=== PATIENT | female | born 1980 | race Caucasian/White ===

== ENCOUNTER → 2018-07-24 | Outpatient (CLI) | payer BC ==
--- NOTE | 2018-07-24 16:55 | KCIC ---
MR of the right knee Indication: Anterior knee pain for 6 months, grinding for 2 months. Comparison: None are available. Technique: The standard multiplanar sequences are obtained. FINDINGS: Artifact: No significant image degradation. Medial meniscus:Intact. Lateral meniscus: Intact. Anterior cruciate ligament: Intact. Posterior cruciate ligament: Intact Medial collateral ligament: Intact. Lateral structures: * Iliotibial band: Intact. * Lateral collateral ligament: Intact. * Biceps femoris tendon: Intact * Popliteus tendon attachment: Intact Extensive mechanism: * Patellar tendon: Intact * Quadriceps tendon: Intact * Retinacular structures: Intact Fluid: Small joint effusion. No significant Horton's cyst. Intra-articular bodies: None visualized Joint compartments * patellofemoral joint: Chondromalacia of the patella with small subchondral cysts and edema. Lateral patellar tilt and subluxation. * medial compartment:Intact * lateral compartment:Intact Bones: No significant lesion or acute fracture. Soft tissue: Unremarkable Impression: 1. Chondromalacia of the patella. Mild lateral patellar tilt and subluxation. 2. No evidence of meniscal tear or other internal derangement. Electronically signed by: Andrae Araiza MD (07/24/2018 4:51 PM) [id number]
== END | disposition home or self-care (01) ==
LOC: KCIC MRI 15:55
PROVIDERS: ATTEND Family Medicine
DX: S83.191A Other subluxation of right knee, initial encounter (principal); M25.461 Effusion, right knee; M22.41 Chondromalacia patellae, right knee; X58.XXXA Exposure to other specified factors, initial encounter; Y93.89 Activity, other specified; Y92.89 Other specified places as the place of occurrence of the external cause; Y99.8 Other external cause status
CPT/HCPCS: 73721